=== PATIENT | male | born 1965 | race Caucasian/White ===

== ENCOUNTER 2016-09-05 16:26 | Emergency (ER) | payer BC ==
[2016-09-05] MEDS ORDERED: ASPIRIN 81 MG CHEW TAB ONE (17:06)
== END 2016-09-05 19:22 | disposition home or self-care (01) ==
LOC: ER 16:26
DX: R07.89 Other chest pain (principal); I10 Essential (primary) hypertension; F17.210 Nicotine dependence, cigarettes, uncomplicated
CPT/HCPCS: 36415; 71010; 80053; 82550; 83735; 84484; 85025; 85610; 85730; 93005